=== PATIENT | male | born 1960 | race Caucasian/White ===

== ENCOUNTER 2018-03-31 12:40 | Day surgery (SDC) | payer OTHER ==
[~2018-03-31] VITALS: Ht 177.8 cm; Wt 92.8 kg
[2018-03-31 13:10] VITALS: Ht 177.8 cm; Wt 92.8 kg
--- NOTE | 2018-03-31 13:26 | PREAC ---
Date/Time of Note Date/Time of Note DATE: 03/31/18 TIME: 13:25 Anesthesia Eval and Record Evaluation Time Pre-Procedure Interview DATE: 03/31/18 TIME: 13:25 Age 57 Sex male NPO: 8 hrs Preoperative diagnosis screening Planned procedure colonoscopy Past Medical History Past Medical History: Includes Renal: Other (s/p bilateral orchiectomy for undescended testes, kidney stones) Surgery & Anesthesia Issues No known issue Meds Anticoagulation: No Beta Lora within 24 hr: No Reason Beta Lora not given: Pt. not on B-Lora Meds reviewed: Yes Allergies Coded Allergies: No Known Allergy (Unverified , 03/31/18) Allergies Reviewed: Yes Labs/Studies Labs Reviewed: Reviewed by anesthesiologist test: N/A Pre-procedure Exam Airway: Adequate mouth opening, Adequate thyromental dist Mallampati: Mallampati II Teeth: Normal Lung: Normal Heart: Normal ASA Physical Status ASA physical status: 2 Emergency: None Planned Anesthetic General/MAC: MAC Planned Pain Management Parenteral pain med Pre-operative Attestations Prior to commencing anesthesia and surgery, the patient was re-evaluated, there was verification of: *The patient's identity *The results of appropriate recent lab work and preoperative vital signs *The above evaluation not changing prior to induction *Anesthetic plan, risk benefits, alternative and complications discussed with patient/family; questions answered; patient/family understands, accepts and w ishes to proceed. NARCISO CABRAL MD Mar 31, 2018 13:26
[2018-03-31] MEDS ORDERED: ONDANSETRON 4 MG INJ IV PRN (13:30)
[2018-03-31 13:41] VITALS: BP 139/81; PULSE 74; RESP 18
[2018-03-31] MEDS ORDERED: NO MEDS (13:44)
[2018-03-31] MEDS ORDERED: PROPOFOL 40 ML ONE (13:50)
[2018-03-31] MEDS ORDERED: LIDOCAINE 2% (SDV) 5 ML INJ ONE (13:50)
[2018-03-31] MEDS ORDERED: PROPOFOL 20 ML ONE (14:33)
--- NOTE | 2018-03-31 14:54 | PAC ---
Date/Time of Note Date/Time of Note DATE: 03/31/18 TIME: 14:53 Post-Anesthesia Notes Post-Anesthesia Note Last documented vital signs Vital Signs Date Temp Pulse Resp B/P (MAP) Pulse Ox O2 O2 Flow FiO2 Time Delivery Rate 03/31/18 98.4 74 18 139/81 99 Room Air 13:41 (100) Activity: WNL Respiratory function: WNL Cardiovascular function: WNL Mental status: Baseline Pain reasonably controlled: Yes Hydration appropriate: Yes Nausea/Vomiting absent: Yes Comments Bp: 104/72 HR: 71 RR: 15 T: 98 SaO2: 99% NARCISO CABRAL MD Mar 31, 2018 14:54
[2018-03-31 15:15] VITALS: BP 118/75; PULSE 76; RESP 16
== END 2018-03-31 16:36 | disposition home or self-care (01) ==
LOC: EDSEX 12:40 → GIL 12:40
PROVIDERS: ATTEND Internal Medicine Gastroenterology
DX: Z12.11 Encounter for screening for malignant neoplasm of colon (principal); D12.5 Benign neoplasm of sigmoid colon; K64.8 Other hemorrhoids
CPT/HCPCS: 88305